=== PATIENT | male | born 2000 | race African-American/Black ===

== ENCOUNTER 2024-07-02 23:35 | Emergency (ER) | payer SELFPAY ==
[2024-07-02] MEDS ORDERED: DIPHENHYDRAMINE 50 MG/ML VIAL ONE (23:53)
[2024-07-02] MEDS ORDERED: FAMOTIDINE 20 MG/2 ML VIAL IV ONE (23:54)
[2024-07-02] MEDS ORDERED: NA CHLORIDE 0.9% 1,000 ML ONE (23:54)
[2024-07-02] MEDS ORDERED: METHYLPREDNISOLONE 40 MG INJ ONE (23:54)
--- NOTE | 2024-07-03 00:43 | ER ---
Nurse's Notes [facility] [place] Name: Abraham Egan Age: 24 yrs Sex: Male : 2000 Arrival Date: 07/02/2024 Time: 23:35 Bed 15 Private MD: Diagnosis: Allergic urticaria Presentation: 07/02 23:37 Chief complaint: Patient states: itching all over my body after eating blue crabs 2 hrs rg5 ago. 23:37 Acuity: LUPE 3 rg5 23:37 Method Of Arrival: Ambulatory rg5 23:37 Coronavirus screen: Client denies travel out of the [place] in the last 14 days. Ebola rg5 Screen: Patient negative for fever greater than or equal to 101.5 degrees Fahrenheit, and additional compatible Ebola Virus Disease symptoms Patient denies exposure to infectious person. Patient denies travel to an Ebola-affected area in the 21 days before illness onset. Onset: The symptoms/episode began/occurred acutely, 2 hour(s) ago. Anaphylaxis evaluation, the patient reports or I have noted the following symptoms which indicate a significant risk of anaphylaxis: abdominal pain urticaria. Initial Sepsis Screen: Does the patient meet any 2 criteria? No. Patient's initial sepsis screen is negative. Does the patient have a suspected source of infection? No. Patient's initial sepsis screen is negative. Risk Assessment: Do you want to hurt yourself or someone else? Patient reports no desire to harm self or others. Onset of symptoms was July 03, 2024. Triage Assessment: 23:37 General: Appears in no apparent distress. Behavior is calm, cooperative, appropriate rg5 for age. Pain: Denies pain. Derm: Reports itching, all over the body. Historical: - Allergies: 23:40 blue crab; rg5 - Immunization history:: Adult Immunizations up to date. - Infectious Disease History:: Denies. - Social history:: Smoking status: Patient denies any tobacco usage or history of. Screenin:40 [facility] ED Fall Risk Assessment (Adult) History of falling in the last 3 months, rg5 including since admission No falls in past 3 months (0 pts) Confusion or Disorientation No (0 pts) Intoxicated or Sedated No (0 pts) Impaired Gait No (0 pts) Mobility Assist Device Used No (0 pt) Altered Elimination No (0 pt) Score/Fall Risk Level 0 - 2 = Low Risk Oriented to surroundings, Maintained a safe environment, Hourly rounding (assess needs \T\ fall precautionary measures) done. Abuse screen: Denies threats or abuse. Nutritional screening: No deficits noted. Tuberculosis screening: No symptoms or risk factors identified. Assessment: 23:17 General: Appears in no apparent distress. Behavior is calm, cooperative, appropriate rg5 for age. Pain: Denies pain. Neuro: Level of Consciousness is awake, alert, obeys commands. Cardiovascular: Denies chest pain, Patient's skin is warm and dry. Respiratory: Airway is patent Trachea midline Respiratory effort is even, unlabored, Breath sounds are clear bilaterally. GI: Abdomen is round Reports cramping. : No signs and/or symptoms were reported regarding the genitourinary system. EENT: Reports nasal congestion. Derm: Reports itching, all over the body. Musculoskeletal: Circulation, motion, and sensation intact. Range of motion: intact in all extremities. 07/03 00:35 Reassessment: Patient and/or family updated on plan of care and expected duration. Pain rg5 level reassessed. Patient is alert, oriented x 3, equal unlabored respirations, skin warm/dry/pink. Patient states symptoms have improved. 01:01 Reassessment: Patient and/or family updated on plan of care and expected duration. Pain rg5 level reassessed. Patient is alert, oriented x 3, equal unlabored respirations, skin warm/dry/pink. Patient states feeling better. Patient states symptoms have improved. Vital Signs: 00:09 BP 165 / 97; Pulse 100; Pulse Ox 99% on R/A; Pain 0/10; rg5 00:45 BP 155 / 76; Pulse 89; Resp 17; Pulse Ox 100% ; rg5 00:09 Pain Scale: Adult rg5 ED Course: 07/02 23:36 Patient arrived in ED. jj6 23:36 Indira Louis PA-C is PHCP. sb4 23:36 Carlos Gonsalez MD is Attending Physician. sb4 23:37 Arm band placed on. rg5 23:40 Bed in low position. Call light in reach. Side rails up X 1. Door closed. Noise rg5 minimized. 23:40 No provider procedures requiring assistance completed. Inserted saline lock: 20 gauge rg5 in right antecubital area, using aseptic technique. Blood collected. Flushed with 10 mL NS. Patient maintains SpO2 saturation greater than 95% on room air. 23:51 Davis Chin, RN is Primary Nurse. rg5 07/03 00:27 Triage completed. rg5 01:00 Provided Education on: post er care. rg5 01:00 IV discontinued, bleeding controlled, No redness/swelling at site. Pressure dressing rg5 applied. Administered Medications: 00:08 Drug: NS 0.9% IV 1000 ml IV at 1000 ml once; to be given as a bolus over 60 minutes rg5 Route: IV; Rate: 1000 ml; Site: right antecubital; 00:51 Follow up: IV Status: Completed infusion; IV Intake: 1000ml rg5 00:08 Drug: diphenhydrAMINE IVP 50 mg IVP once Route: IVP; Site: right antecubital; rg5 00:51 Follow up: Response: No adverse reaction rg5 00:08 Drug: Famotidine IVP 20 mg IVP once; dilute with 10 mL 0.9% NaCl; give over 2 minutes rg5 Route: IVP; Site: right antecubital; 00:51 Follow up: Response: No adverse reaction rg5 00:08 Drug: MethylPrednisoLONE IVP 80 mg IVP once Route: IVP; Site: right antecubital; rg5 00:51 Follow up: Response: No adverse reaction rg5 Medication: 07/02 23:40 VIS not applicable for this client. rg5 Intake: 07/03 00:51 IV: 1000ml; Total: 1000ml. rg5 Outcome: 00:42 Discharge ordered by . mayra 00:59 Discharged to home ambulatory, rg5 00:59 Condition: stable 00:59 Discharge instructions given to patient, Instructed on discharge instructions, Demonstrated understanding of instructions, Prescriptions given X 3, 01:01 Patient left the ED. rg5 Signatures: Makayla Townsend Sophia, PA-C PA-C sb4 Gallardo, Rommel, RN RN rg5
--- NOTE | 2024-07-03 00:43 | EDPHYS ---
Physician Documentation [facility] Name: Abraham Egan Age: 24 yrs Sex: Male : 2000 Arrival Date: 07/02/2024 Time: 23:35 Bed 15 Private MD: ED Physician Carlos Gonsalez HPI: 07/02 23:57 This 24 yrs old Male presents to ER via Unassigned with complaints of Allergic Reaction.sb4 23:57 The patient presents with itching, rash, redness of skin. Onset: The symptoms/episode sb4 began/occurred just prior to arrival. Associated signs and symptoms: The patient has no apparent associated signs or symptoms. Possible causes: shellfish. At home the patient or guardian has treated the symptoms with 2nd gen antihistamine. The patient has not experienced similar symptoms in the past. The patient has not recently seen a physician. Historical: - Allergies: 23:40 blue crab; rg5 - Immunization history:: Adult Immunizations up to date. - Infectious Disease History:: Denies. - Social history:: Smoking status: Patient denies any tobacco usage or history of. ROS: 23:57 Constitutional: Negative for fever, chills, and weight loss, sb4 23:57 Skin: Positive for rash, diffusely, itching, 23:57 All other systems are negative, Exam: 23:57 Head/Face: Normocephalic, atraumatic. Eyes: Extra-ocular motions intact. Periorbital sb4 areas with no swelling, redness, or edema. ENT: Mucous membranes moist. Cardiovascular: Regular rate and rhythm with a normal S1 and S2. Respiratory: No increased work of breathing, no retractions or nasal flaring. Abdomen/GI: Soft, non-tender, no distension. 23:57 Constitutional: The patient appears alert, awake, anxious, restless, 23:57 ENT: Posterior pharynx: no acute changes, Airway: normal, no evidence of obstruction, patent, 23:57 Respiratory: Breath sounds: are clear throughout, 23:57 Skin: urticaria, and is diffusely located, Vital Signs: 07/03 00:09 BP 165 / 97; Pulse 100; Pulse Ox 99% on R/A; Pain 0/10; rg5 00:45 BP 155 / 76; Pulse 89; Resp 17; Pulse Ox 100% ; rg5 00:09 Pain Scale: Adult rg5 MDM: 07/02 23:37 Medical Screening Exam initiated sb4 07/03 00:42 Differential diagnosis: anaphylaxis, Mastocystosis urticaria. Data reviewed: vital sb4 signs, nurses notes, and as a result, I will discharge patient. Counseling: I had a detailed discussion with the patient and/or guardian regarding the historical points, exam findings, and any diagnostic results supporting the discharge/admit diagnosis, the need for outpatient follow up, for definitive care, to return to the emergency department if symptoms worsen or persist or if there are any questions or concerns that arise at home. 07/02 23:46 Order name: IV Start; Complete Time: 00:08 sb4 Administered Medications: 00:08 Drug: NS 0.9% IV 1000 ml IV at 1000 ml once; to be given as a bolus over 60 minutes rg5 Route: IV; Rate: 1000 ml; Site: right antecubital; 00:51 Follow up: IV Status: Completed infusion; IV Intake: 1000ml rg5 00:08 Drug: diphenhydrAMINE IVP 50 mg IVP once Route: IVP; Site: right antecubital; rg5 00:51 Follow up: Response: No adverse reaction rg5 00:08 Drug: Famotidine IVP 20 mg IVP once; dilute with 10 mL 0.9% NaCl; give over 2 minutes rg5 Route: IVP; Site: right antecubital; 00:51 Follow up: Response: No adverse reaction rg5 00:08 Drug: MethylPrednisoLONE IVP 80 mg IVP once Route: IVP; Site: right antecubital; rg5 00:51 Follow up: Response: No adverse reaction rg5 Disposition: 23:20 Co-signature as Attending Physician, Carlos Gonsalez MD I agree with the assessment sp4 and plan of care. I reviewed the patient's care provided by the Advanced Practice Provider and agree with the diagnosis and treatment plan. Disposition Summary: 07/03/24 00:42 Discharge Ordered Notes: Location: Home sb4 Problem: new sb4 Symptoms: have improved sb4 Condition: Stable sb4 Diagnosis - Allergic urticaria sb4 Followup: sb4 - With: Emergency Department - When: As needed - Reason: Trouble breathing, Worsening of condition Discharge Instructions: - Discharge Summary Sheet sb4 - Hives, [id number] sb4 Forms: - Patient Portal Instructions sb4 - Leadership Thank You Letter sb4 Prescriptions: - Pepcid 20 mg Oral Tablet - take 1 tablet ORAL route every 12 hours for 5 days; 10 tablet; Refills: 0, sb4 Product Selection Permitted - Prednisone 20 mg Oral Tablet - take 1 tablet ORAL route once daily for 5 days; 5 tablet; Refills: 0, Product sb4 Selection Permitted - Loratadine 10 mg Oral Tablet - take 1 tablet ORAL route once daily; 14 tablet; Refills: 0, Product Selection sb4 Permitted Signatures: Indira Louis PA-C PA-C sb4 Carlos Gonsalez MD MD sp4 Davis Chin RN RN rg5
[2024-07-03 01:11] VITALS: BP 155/76; O2SAT 100
== END 2024-07-03 01:01 | disposition home or self-care (01) ==
LOC: ER 23:35
DX: L50.0 Allergic urticaria (principal)
CPT/HCPCS: 96361; 96374; 96375; 99284; J1200; J2919; J7030